=== PATIENT | male | born 1950 | race African-American/Black ===

== ENCOUNTER 2017-11-20 13:25 | Inpatient (IN) | payer OTHER, MEDICARE ==
[~2017-11-20] VITALS: Ht 190.5 cm; Wt 90.7 kg
[2017-11-20 13:38] VITALS: BP 134/104
[2017-11-20] MEDS ORDERED: Albuterol/Ipratropium 3ml neb HHN ONE (13:45)
[2017-11-20 14:23] LABS: BASOPHILS % (AUTO) 0.9 % (0.0-2.0); EOSINOPHILS % (AUTO) 0.5 % (0.0-3.0); HEMATOCRIT 47.2 % (42.0-52.0); HEMOGLOBIN 15.3 G/DL (14.2-18.0); LYMPHOCYTES % (AUTO) 8.2 % (20.0-45.0); MEAN CORPUSCULAR VOLUME 102 FL (80-99); MONOCYTES % (AUTO) 7.3 % (1.0-10.0); NEUTROPHILS % (AUTO) 83.1 % (45.0-75.0); PLATELET COUNT 228 K/UL (150-450); RED BLOOD COUNT 4.65 M/UL (4.70-6.10); RED CELL DISTRIBUTION WIDTH 13.5 % (11.6-14.8); WHITE BLOOD COUNT 9.1 K/UL (4.8-10.8)
--- NOTE | 2017-11-20 14:27 | Diagnostic Imaging Report ---
Indication: Dyspnea Comparison: None A single view chest radiograph was obtained. Findings: No definite infiltrate or pulmonary vascular congestion identified. The heart is enlarged. The aorta is mildly enlarged consistent with atherosclerotic vascular disease. The bones are osteopenic. Impression: No acute disease
[2017-11-20 14:48] LABS: ANION GAP 10 mmol/L (5-15); BLOOD UREA NITROGEN 8 mg/dL (7-18); CALCIUM 9.4 MG/DL (8.5-10.1); CARBON DIOXIDE 29 MMOL/L (21-32); CHLORIDE 105 MMOL/L (98-107); POTASSIUM 4.7 MMOL/L (3.5-5.1); SODIUM 144 MMOL/L (136-145)
[2017-11-20 14:56] LABS: ALANINE AMINOTRANSFERASE 24 U/L (12-78); ALBUMIN/GLOBULIN RATIO 1.1 (1.0-2.7); ALKALINE PHOSPHATASE 83 U/L (46-116); ASPARTATE AMINO TRANSFERASE 26 U/L (15-37); BILIRUBIN,TOTAL 0.9 MG/DL (0.2-1.0); CKMB 2.7 NG/ML (0.0-3.6); CREATINE KINASE 124 U/L (26-308)
[2017-11-20 15:38] LABS: APPEARANCE,URINE CLEAR; BILIRUBIN, URINE NEGATIVE (NEGATIVE); GLUCOSE, URINE (UA) NEGATIVE (NEGATIVE); KETONES,URINE NEGATIVE (NEGATIVE); LEUKOCYTE ESTERASE ,URINE 3+ (NEGATIVE); NITRITE,URINE NEGATIVE (NEGATIVE); PH,URINE 5 (4.5-8.0); PROTEIN,URINE 2+ (NEGATIVE); UROBILINOGEN,URINE 1 MG/DL (0.0-1.0)
[2017-11-20 15:40] LABS: COLOR,URINE YELLOW
[2017-11-20] MEDS ORDERED: Aspirin Baby 81mg ORAL ONE (15:45)
--- NOTE | 2017-11-20 15:45 | Diagnostic Imaging Report ---
Indication: Altered mental status Technique: Contiguous 5 mm thick transaxial imaging of the head obtained in a Siemens Sensation [address] scanner. Soft tissue and bone windows generated. Automatic Exposure Control was utilized. Total Dose length Product (DLP): 1488.[address] Dose Index Volume (CTDIvol): 70.38 mGy Comparison: none Findings: There is mild prominence of the ventricles, basal cisterns, and cerebral sulci consistent with atrophy. Mild, nonspecific, white matter hypoattenuation is noted throughout the brain consistent with chronic small vessel disease. There is no midline shift, edema, acute hemorrhage, mass effect, or abnormal extra-axial fluid collections. Bones and extra osseous soft tissues are unremarkable. Impression: No acute intracranial bleed, mass effect or edema. Mild atrophy of the brain. Nonspecific white matter hypoattenuation probably due to chronic small vessel disease. The CT scanner at [facility] is accredited by the [employer] and the scans are performed using dose optimization techniques as appropriate to a performed exam including Automatic Exposure control.
[2017-11-20 16:07] VITALS: BP 153/80
--- NOTE | 2017-11-20 16:34 | Emergency Room Report ---
History of Present Illness General Chief Complaint: Dyspnea/Respdistress Source: Patient Present Illness HPI Patient is a 67-year-old male presented after increased difficulty breathing. Patient gradual onset of symptoms. The patient brought in by EMS. He is markedly limited by patient being a poor historian. The patient had intermittent sharp pain. He reported having nonproductive cough. Allergies: Coded Allergies: PENICILLINS (Verified Allergy, Unknown, 11/20/17) Patient History Past Medical History: see triage record Reviewed Nursing Documentation: PMH: Agreed, PSxH: Agreed Nursing Documentation-PM Past Medical History: No History, Except For Hx Asthma: Yes Review of Systems All Other Systems: limited - by poor historian Physical Exam Vital Signs Date Time Temp Pulse Resp B/P (MAP) Pulse Ox O2 Delivery O2 Flow Rate FiO2 11/20/17 13:29 99.3 117 18 132/94 96 Nasal Cannula 4.0 11/20/17 14:05 32 Sp02 EP Interpretation: reviewed, normal General Appearance: normal inspection, alert, moderate distress, Chronically Ill Head: atraumatic ENT: normal ENT inspection, hearing grossly normal, normal voice Neck: normal inspection, full range of motion, supple, no bony tend Respiratory: normal inspection, no respiratory distress, no retraction, wheezing Cardiovascular #1: regular rate, rhythm, no edema Gastrointestinal: normal inspection, normal bowel sounds, non tender, soft, no guarding, no hernia Genitourinary: no CVA tenderness Musculoskeletal: normal inspection, back normal, normal range of motion Neurologic: normal inspection, alert, responsive, cap inspector III-XII nml as tested, other - confused speech Psychiatric: normal inspection, mood/affect normal Skin: normal inspection, normal color, no rash Medical Decision Making Diagnostic Impression: Primary Impression: Respiratory distress Additional Impressions: Non-STEMI (non-ST elevated myocardial infarction) COPD (chronic obstructive pulmonary disease) ER Course This presented for shortness of breath. Differential included but was not limited to anemia, pneumonia, pneumothorax, myocardial infarction, pericardial effusion, congestive heart failure, acidosis. Because of complexity of patient' s case laboratory testing and imaging studies were ordered. The patient was given aspirin as well as a breathing treatment in the emergency department. EKG interpreted by me showed sinus tachycardia with rate of 115 with biatrial enlargement there are nonspecific lateral T-wave inversion. Patient was noted to have positive troponin. Dr. Aurelio Mcgraw was contacted for inpatient management. Labs Test 11/20/17 14:03 11/20/17 14:05 11/20/17 15:20 Arterial Blood pH 7.429 (7.350-7.450) Arterial Blood Partial Pressure CO2 35.8 mmHg (35.0-45.0) Arterial Blood Partial Pressure O2 98.9 mmHg (75.0-100.0) Arterial Blood HCO3 23.2 mmol/L (22.0-26.0) Arterial Blood Oxygen Saturation 97.6 % (92.0-98.0) Arterial Blood Base Excess -0.6 Alin Test Positive White Blood Count 9.1 K/UL (4.8-10.8) Red Blood Count 4.65 M/UL (4.70-6.10) Hemoglobin 15.3 G/DL (14.2-18.0) Hematocrit 47.2 % (42.0-52.0) Mean Corpuscular Volume 102 FL (80-99) Mean Corpuscular Hemoglobin 33.0 PG (27.0-31.0) Mean Corpuscular Hemoglobin Concent 32.5 G/DL (32.0-36.0) Red Cell Distribution Width 13.5 % (11.6-14.8) Platelet Count 228 K/UL (150-450) Mean Platelet Volume 7.5 FL (6.5-10.1) Neutrophils (%) (Auto) 83.1 % (45.0-75.0) Lymphocytes (%) (Auto) 8.2 % (20.0-45.0) Monocytes (%) (Auto) 7.3 % (1.0-10.0) Eosinophils (%) (Auto) 0.5 % (0.0-3.0) Basophils (%) (Auto) 0.9 % (0.0-2.0) Sodium Level 144 MMOL/L (136-145) Potassium Level 4.7 MMOL/L (3.5-5.1) Chloride Level 105 MMOL/L (98-107) Carbon Dioxide Level 29 MMOL/L (21-32) Anion Gap 10 mmol/L (5-15) Blood Urea Nitrogen 8 mg/dL (7-18) Creatinine 1.0 MG/DL (0.55-1.30) Estimat Glomerular Filtration Rate > 60 mL/min (>60) Glucose Level 118 MG/DL (74-106) Lactic Acid Level 3.10 mmol/L (0.66-2.22) Calcium Level 9.4 MG/DL (8.5-10.1) Total Bilirubin 0.9 MG/DL (0.2-1.0) Aspartate Amino Transf (AST/SGOT) 26 U/L (15-37) Alanine Aminotransferase (ALT/SGPT) 24 U/L (12-78) Alkaline Phosphatase 83 U/L (46-116) Total Creatine Kinase 124 U/L (26-308) Creatine Kinase MB 2.7 NG/ML (0.0-3.6) Creatine Kinase MB Relative Index 2.1 Troponin I 1.617 ng/mL (0.000-0.056) Total Protein 7.5 G/DL (6.4-8.2) Albumin 4.0 G/DL (3.4-5.0) Globulin 3.5 g/dL Albumin/Globulin Ratio 1.1 (1.0-2.7) Urine Color Yellow Urine Appearance Clear Urine pH 5 (4.5-8.0) Urine Specific [place] 1.020 (1.005-1.035) Urine Protein 2+ (NEGATIVE) Urine Glucose (UA) Negative (NEGATIVE) Urine Ketones Negative (NEGATIVE) Urine Occult Blood 2+ (NEGATIVE) Urine Nitrite Negative (NEGATIVE) Urine Bilirubin Negative (NEGATIVE) Urine Urobilinogen 1 MG/DL (0.0-1.0) Urine Leukocyte Esterase 3+ (NEGATIVE) Urine RBC 2-4 /HPF (0 - 0) Urine WBC 5-10 /HPF (0 - 0) Urine Squamous Epithelial Cells None /LPF (NONE/OCC) Urine Amorphous Sediment Few /LPF (NONE) Urine Bacteria Few /HPF (NONE) Urine Mucus Few /LPF (NONE/OCC) Urine Opiates Screen Negative (NEGATIVE) Urine Barbiturates Screen Negative (NEGATIVE) Phencyclidine (PCP) Screen Negative (NEGATIVE) Urine Amphetamines Screen Negative (NEGATIVE) Urine Benzodiazepines Screen Negative (NEGATIVE) Urine Cocaine Screen Negative (NEGATIVE) Urine Marijuana (THC) Screen Negative (NEGATIVE) EKG Diagnostic Results Rate: tachycardiac Rhythm: NSR ST Segments: no acute changes ASA given to the pt in ED: Yes Rhythm Strip Diag. Results EP Interpretation: yes Rhythm: NSR, no PVC's, no ectopy Last Vital Signs Date Time Temp Pulse Resp B/P (MAP) Pulse Ox O2 Delivery O2 Flow Rate FiO2 11/20/17 16:07 99.3 122 27 153/80 99 Nasal Cannula 3.0 11/20/17 14:05 32 Status: unchanged Disposition: ADMITTED INPATIENT Condition: Serious Referrals: NOT CHOSEN IPA/,REFERRING (PCP) Francisco Norton Nov 20, 2017 16:34
[2017-11-20 17:48] VITALS: BP 112/75
[2017-11-20 19:05] VITALS: BP 135/84
[2017-11-20 22:00] VITALS: BP 112/81
[2017-11-20] MEDS ORDERED: cefTRIAXone 1 GM in NS 55 ML IVPB SCH (23:30)
[2017-11-20 23:40] VITALS: BP 116/76
[2017-11-21] MEDS: Albuterol/Ipratropium 3ml neb HHN SCH ×6 (02:10→22:32)
[2017-11-21 03:12] VITALS: BP 126/81
[2017-11-21 04:35] VITALS: BP 101/72
[2017-11-21 07:48] LABS: EOSINOPHILS % (AUTO) 0.4 % (0.0-3.0); HEMATOCRIT 40.1 % (42.0-52.0); HEMOGLOBIN 13.1 G/DL (14.2-18.0); LYMPHOCYTES % (AUTO) 11.1 % (20.0-45.0); MEAN CORPUSCULAR VOLUME 101 FL (80-99); MONOCYTES % (AUTO) 8.1 % (1.0-10.0); NEUTROPHILS % (AUTO) 79.4 % (45.0-75.0); PLATELET COUNT 189 K/UL (150-450); RED BLOOD COUNT 3.96 M/UL (4.70-6.10); RED CELL DISTRIBUTION WIDTH 13.5 % (11.6-14.8); WHITE BLOOD COUNT 8.7 K/UL (4.8-10.8)
[2017-11-21 08:00] VITALS: BP 117/72
[2017-11-21 08:21] LABS: ALANINE AMINOTRANSFERASE 25 U/L (12-78); ALBUMIN 3.1 G/DL (3.4-5.0); ALBUMIN/GLOBULIN RATIO 0.9 (1.0-2.7); ALKALINE PHOSPHATASE 70 U/L (46-116); ANION GAP 6 mmol/L (5-15); ASPARTATE AMINO TRANSFERASE 35 U/L (15-37); BILIRUBIN,TOTAL 1.2 MG/DL (0.2-1.0); BLOOD UREA NITROGEN 8 mg/dL (7-18); CALCIUM 8.8 MG/DL (8.5-10.1); CARBON DIOXIDE 29 MMOL/L (21-32); CHLORIDE 106 MMOL/L (98-107); CHOLESTEROL 112 MG/DL (< 200); CREATININE 1.1 MG/DL (0.55-1.30); HDL CHOLESTEROL 67 MG/DL (40-60); POTASSIUM 4.6 MMOL/L (3.5-5.1); SODIUM 141 MMOL/L (136-145); TRIGLYCERIDES 29 MG/DL (30-150)
[2017-11-21 08:28] LABS: BILIRUBIN,DIRECT 0.3 MG/DL (0.0-0.3)
[2017-11-21] MEDS: Azithromycin 250mg tab ORAL SCH (09:14)
[2017-11-21] MEDS: Aspirin EC 81mg tab ORAL SCH (09:16)
--- NOTE | 2017-11-21 09:43 | History and Physical Report ---
DATE OF ADMISSION: 11/20/2017 ATTENDING PHYSICIAN: Aurelio Mcgraw M.D. REASON FOR ADMISSION: Elevated troponin level. HISTORY OF PRESENT ILLNESS: This is a 67-year-old male with no known significant medical history. He presented to the hospital complaining of some congestion and shortness of breath. He also noted difficulty sleeping last night because of not being able to get in a comfortable position in bed. He was evaluated in the emergency room. Concerning cardiac workup included an elevated troponin level of 1.617 and EKG revealing sinus tachycardia with rightward axis and non-specific T-wave abnormalities. Chemistry panel and CBC were within normal limits. Lactic acid, however, was elevated at 3.1. Chest x-ray revealed no acute process. PAST MEDICAL HISTORY: Includes possible chronic obstructive pulmonary disease and history of childhood asthma. MEDICATIONS: Presently none. ALLERGIES: Penicillin. SOCIAL HISTORY: Prior smoker. Denies alcohol or substance abuse. REVIEW OF SYSTEMS: A 10-point review of systems performed. All systems negative other than noted above. The patient is not very well-versed his medical history, but does state that he is familiar with the medical field as his sister and mother were both nurses and one was actually employed at this facility although . PHYSICAL EXAMINATION: GENERAL: Thin, frail, and in no acute distress. VITAL SIGNS: Blood pressure 153/80, pulse 122, respirations 27, and temperature 99.3. HEENT: Temporal wasting. Pale conjunctivae. Oropharynx clear. Mucous membranes dry. NECK: Supple. Jugular venous pressure normal. LUNGS: With diminished breath sounds. No wheezing or rales. CARDIAC: Regular rhythm. Rapid rate. Normal S1, S2 with no murmur. ABDOMEN: Soft and nontender. No guarding or rebound. EXTREMITIES: No edema. NEUROLOGIC: Nonfocal. IMPRESSION: 1. Acute myocardial infarction. 2. Chronic obstructive pulmonary disease exacerbation. 3. Probable acute bronchitis. 4. Lactic acidosis. 5. Condition critical. PLAN: 1. Cardiac monitoring. 2. Hydration. 3. Serial lactic acid levels. 4. Serial troponin level. 5. Beta-blockade. 6. Anti-platelet therapy with aspirin. 7. Inhaled bronchodilators. 8. Empiric antibiotic. 9. DVT and stress ulcer prophylaxes. 10. Further cardiovascular workup to follow based on clinical course. 11. Cautious use of beta-blockers in this clinical setting. Aurelio Mcgraw M.D. DR: KATHERINE JOB#: [id number] CC: PALLAVI
[2017-11-21 12:00] VITALS: BP 124/79
[2017-11-21] MEDS: Doxycycline Hyclate 100 MG in D5W 110 ML IV SCH (13:18)
[2017-11-21 16:00] VITALS: BP 110/79
[2017-11-21 20:29] VITALS: BP 123/80
[2017-11-21] MEDS: Zolpidem 5mg tab ORAL SCH (21:10)
[2017-11-21] MEDS: Heparin 5000 units/ml inj SUBQ SCH (21:21)
[2017-11-22 00:05] VITALS: BP 99/66
[2017-11-22] MEDS: Doxycycline Hyclate 100 MG in D5W 110 ML IV SCH ×2 (00:19→13:06)
--- NOTE | 2017-11-22 02:45 | Progress Note ---
DATE: 11/21/2017 CARDIOLOGY PROGRESS NOTE SUBJECTIVE: The patient is still coughing with congestion and shortness of breath, but feels slightly better. No chest pain noted. OBJECTIVE: VITAL SIGNS: Blood pressure 123/80, pulse 112, respirations 20, and afebrile. Monitored rhythm is sinus tachycardia with occasional PACs. LUNGS: Coarse breath sounds. Scattered rhonchi. HEART: Regular rhythm. Rapid rate. Normal S1 and S2. ABDOMEN: Soft. EXTREMITIES: No edema. LABORATORY DATA: White count 8.7 and hemoglobin 13.1. Sodium 141, potassium 4.6, bicarbonate 29, BUN 8, and creatinine 1.1. Lactic acid now normal. Troponin 1.289. Albumin 3.1. LDL cholesterol 48. IMPRESSION: 1. Acute myocardial infarction. 2. Chronic obstructive pulmonary disease with acute exacerbation. 3. Acute bronchospasm. 4. Lactic acidosis, recovered. 5. Mild protein-calorie malnutrition. 6. Hypovolemia and mild dehydration. 7. Cardiogenic insuff - critical and guarded. PLAN: 1. Cautious use of beta-gavino. 2. Anti-platelet therapy with aspirin. 3. Inhaled bronchodilators. 4. Empiric antibiotics. 5. Check CT scan of the chest. 6. Taper IV fluids. Aurelio Mcgraw M.D. DR: BARB JOB#: [id number] CC: PALLAVI
[2017-11-22] MEDS: Albuterol/Ipratropium 3ml neb HHN SCH ×5 (03:30→20:19)
[2017-11-22 04:13] VITALS: BP 111/74
[2017-11-22 08:00] VITALS: BP 123/87
[2017-11-22] MEDS: Aspirin EC 81mg tab ORAL SCH (08:47)
[2017-11-22] MEDS: Azithromycin 250mg tab ORAL SCH (08:48)
[2017-11-22] MEDS: Heparin 5000 units/ml inj SUBQ SCH ×2 (08:49→21:10)
[2017-11-22 12:00] VITALS: BP 99/75
--- NOTE | 2017-11-22 13:58 | Consultation ---
Consult Note Consult Note PULMONARY CONSULTATION REQUESTING PHYSICIAN: Aurelio Mcgraw M.D. CONSULTING PHYSICIAN: Apolinar Singer MD REASON FOR ADMISSION: shortness of breath HISTORY OF PRESENT ILLNESS: This is a 67-year-old male with no known significant medical history. He presented to the hospital complaining of some congestion and shortness of breath. He also noted difficulty sleeping last night because of not being able to get in a comfortable position in bed. He was evaluated in the emergency room. Concerning cardiac workup included an elevated troponin level of 1.617 and EKG revealing sinus tachycardia with rightward axis and non-specific T-wave abnormalities. Chemistry panel and CBC were within normal limits. Lactic acid, however, was elevated at 3.1. Chest x-ray revealed no acute process. PAST MEDICAL HISTORY: Includes possible chronic obstructive pulmonary disease and history of childhood asthma. MEDICATIONS: Presently none. ALLERGIES: Penicillin. SOCIAL HISTORY: Prior smoker. Denies alcohol or substance abuse. REVIEW OF SYSTEMS: A 10-point review of systems performed. All systems negative other than noted above. The patient is not very well-versed his medical history, but does state that he is familiar with the medical field as his sister and mother were both nurses and one was actually employed at this facility although . PHYSICAL EXAMINATION: GENERAL: Thin, frail, and in no acute distress. VITAL SIGNS: Blood pressure 153/80, pulse 122, respirations 27, and temperature 99.3. HEENT: Temporal wasting. Pale conjunctivae. Oropharynx clear. Mucous membranes dry. NECK: Supple. Jugular venous pressure normal. LUNGS: With diminished breath sounds. No wheezing or rales. CARDIAC: Regular rhythm. Rapid rate. Normal S1, S2 with no murmur. ABDOMEN: Soft and nontender. No guarding or rebound. EXTREMITIES: No edema. NEUROLOGIC: Nonfocal. IMPRESSION: 1. Acute myocardial infarction. 2. Chronic obstructive pulmonary disease exacerbation. 3. history of asthma 4. Lactic acidosis. 5. Condition critical. PLAN: 1. Cardiac monitoring. 2. Hydration. 3. Serial lactic acid levels. 4. Serial troponin level. 5. Beta-blockade. 6. Anti-platelet therapy with aspirin. 7. Inhaled bronchodilators. 8. Empiric antibiotic. 9. DVT and stress ulcer prophylaxes. 10. Further cardiovascular workup to follow based on clinical course. 11. Cautious use of beta-blockers in this clinical setting. 12. hold off on steroids. Trevor Brown Omar Syed MD Nov 22, 2017 13:58
[2017-11-22 16:00] VITALS: BP 127/85
[2017-11-22 20:30] VITALS: BP 117/73
[2017-11-22] MEDS: Zolpidem 5mg tab ORAL SCH (21:06)
[2017-11-23 00:02] VITALS: BP 100/61
[2017-11-23] MEDS: Albuterol/Ipratropium 3ml neb HHN SCH ×7 (00:13→23:16)
[2017-11-23] MEDS: Doxycycline Hyclate 100 MG in D5W 110 ML IV SCH ×2 (00:24→12:26)
[2017-11-23 04:10] VITALS: BP 111/76
[2017-11-23 06:21] LABS: BASOPHILS % (AUTO) 1.6 % (0.0-2.0); EOSINOPHILS % (AUTO) 1.4 % (0.0-3.0); HEMATOCRIT 36.8 % (42.0-52.0); HEMOGLOBIN 12.5 G/DL (14.2-18.0); MEAN CORPUSCULAR VOLUME 101 FL (80-99); MONOCYTES % (AUTO) 8.3 % (1.0-10.0); NEUTROPHILS % (AUTO) 57.8 % (45.0-75.0); PLATELET COUNT 158 K/UL (150-450); RED BLOOD COUNT 3.63 M/UL (4.70-6.10); RED CELL DISTRIBUTION WIDTH 12.9 % (11.6-14.8)
[2017-11-23 06:56] LABS: ALANINE AMINOTRANSFERASE 21 U/L (12-78); ALBUMIN 2.8 G/DL (3.4-5.0); ALBUMIN/GLOBULIN RATIO 0.8 (1.0-2.7); ALKALINE PHOSPHATASE 56 U/L (46-116); ANION GAP 8 mmol/L (5-15); ASPARTATE AMINO TRANSFERASE 23 U/L (15-37); BILIRUBIN,TOTAL 0.5 MG/DL (0.2-1.0); BLOOD UREA NITROGEN 16 mg/dL (7-18); CALCIUM 9.1 MG/DL (8.5-10.1); CARBON DIOXIDE 25 MMOL/L (21-32); CHLORIDE 109 MMOL/L (98-107); CREATININE 1.1 MG/DL (0.55-1.30); POTASSIUM 4.3 MMOL/L (3.5-5.1); SODIUM 142 MMOL/L (136-145)
[2017-11-23 08:00] VITALS: BP 114/76
[2017-11-23] MEDS: Azithromycin 250mg tab ORAL SCH (09:01)
[2017-11-23] MEDS: Aspirin EC 81mg tab ORAL SCH (09:01)
[2017-11-23] MEDS: Heparin 5000 units/ml inj SUBQ SCH ×2 (09:02→21:52)
--- NOTE | 2017-11-23 11:54 | Pulmonology Progress Note ---
Assessment/Plan Assessment/Plan 1. Acute myocardial infarction. 2. Chronic obstructive pulmonary disease exacerbation. 3. history of asthma 4. Lactic acidosis. 5. Condition critical. PLAN: I suspect the predominant issue is cardiac on echocardiogram. I Will DC IV fluids.. Continue antibiotics. Subjective Interval Events: Echocardiogram results noted. Patient is comfortable. Constitutional: Reports: no symptoms HEENT: Repors: no symptoms Respiratory: Reports: dry cough, shortness of breath Cardiovascular: Reports: no symptoms Gastrointestinal/Abdominal: Reports: no symptoms Allergies: Coded Allergies: PENICILLINS (Verified Allergy, Unknown, 11/20/17) Objective Last 24 Hour Vital Signs Date Time Temp Pulse Resp B/P (MAP) Pulse Ox O2 Delivery O2 Flow Rate FiO2 11/23/17 11:26 96 20 99 Room Air 21 11/23/17 11:18 95 20 99 Room Air 21 11/23/17 09:02 101 114/76 11/23/17 08:00 94 11/23/17 08:00 97.0 101 19 114/76 98 Room Air 11/23/17 07:38 86 18 99 Room Air 21 11/23/17 07:29 84 20 99 Room Air 21 11/23/17 04:10 97.0 92 20 111/76 97 11/23/17 04:00 93 11/23/17 03:33 92 16 98 Room Air 21 11/23/17 03:23 89 18 95 Room Air 21 11/23/17 00:28 101 18 97 Room Air 21 11/23/17 00:15 99 18 95 Room Air 21 11/23/17 00:02 97.2 88 20 100/61 100 11/23/17 00:00 102 11/22/17 21:06 103 117/73 11/22/17 20:31 103 18 97 Room Air 21 11/22/17 20:30 98.1 102 20 117/73 96 11/22/17 20:21 101 21 95 Room Air 21 11/22/17 20:00 101 11/22/17 16:00 101 11/22/17 16:00 97.3 99 21 127/85 99 Room Air 11/22/17 15:51 92 16 99 Room Air 21 11/22/17 15:41 96 16 98 21 11/22/17 12:00 98 11/22/17 12:00 97.6 97 21 99/75 98 Room Air Intake and Output 1/11/18 1/12/18 19:00 07:00 Intake Total 800 ml 626.6 ml Output Total 1400 ml 400 ml Balance -600 ml 226.6 ml Intake Oral 800 ml IV Total 626.6 ml Output Urine Total 1400 ml 400 ml # Voids 2 General Appearance: no acute distress HEENT: normocephalic Respiratory/Chest: chest wall non-tender, lungs clear Cardiovascular: normal peripheral pulses, normal rate Abdomen: normal bowel sounds Microbiology Date/Time Source Procedure Growth Status 11/20/17 14:05 Blood Blood Culture - Preliminary NO GROWTH AFTER 48 HOURS Resulted 11/20/17 14:00 Blood Blood Culture - Preliminary NO GROWTH AFTER 48 HOURS Resulted 11/21/17 21:30 Sputum Expectorated Gram Stain - Final Resulted 11/21/17 21:30 Sputum Expectorated Sputum Culture - Preliminary NORMAL UPPER RESPIRATORY KASSIE AT 24 ... Resulted 11/20/17 15:09 Nasal Nares Influenza Types A,B Antigen (JAYSON) - Final Complete Laboratory Tests 11/23/17 05:40: White Blood Count 5.0, Red Blood Count 3.63L, Hemoglobin 12.5L, Hematocrit 36.8L , Mean Corpuscular Volume 101H, Mean Corpuscular Hemoglobin 34.5H, Mean Corpuscular Hemoglobin Concent 34.0, Red Cell Distribution Width 12.9, Platelet Count 158, Mean Platelet Volume 7.5, Neutrophils (%) (Auto) 57.8, Lymphocytes (% ) (Auto) 31.0, Monocytes (%) (Auto) 8.3, Eosinophils (%) (Auto) 1.4, Basophils ( %) (Auto) 1.6, Sodium Level 142, Potassium Level 4.3, Chloride Level 109H, Carbon Dioxide Level 25, Anion Gap 8, Blood Urea Nitrogen 16, Creatinine 1.1, Estimat Glomerular Filtration Rate > 60, Glucose Level 106, Calcium Level 9.1, Magnesium Level 1.5L, Total Bilirubin 0.5, Aspartate Amino Transf (AST/SGOT) 23 , Alanine Aminotransferase (ALT/SGPT) 21, Alkaline Phosphatase 56, Pro-B-Type Natriuretic Peptide 4648H, Total Protein 6.4, Albumin 2.8L, Globulin 3.6, Albumin/Globulin Ratio 0.8L Current Medications Medications (Trade) Dose Ordered Sig/Elmer Route PRN Reason Start Time Stop Time Status Last Admin Dose Admin Acetaminophen (Tylenol) 650 mg EVERY 4 HOURS PRN ORAL fever ALFARO Pain 11/20/17 23:30 12/20/17 23:29 11/21/17 04:22 Albuterol/ Ipratropium (Albuterol/ Ipratropium) 3 ml Q4HRT HHN 11/21/17 03:00 11/26/17 02:59 11/23/17 11:18 Aspirin (Ecotrin) 81 mg DAILY ORAL 11/21/17 09:00 12/21/17 08:59 11/23/17 09:01 Azithromycin (Zithromax) 250 mg DAILY ORAL 11/21/17 09:00 11/28/17 08:59 11/23/17 09:01 Carvedilol (Coreg) 3.125 mg EVERY 12 HOURS ORAL 11/20/17 23:30 12/20/17 23:29 11/23/17 09:02 Doxycycline Hyclate 100 mg/ Dextrose 110 ml @ 110 mls/hr Q12HR@0000,1200 IV 11/21/17 12:00 11/28/17 11:59 11/23/17 00:24 Famotidine (Pepcid) 20 mg DAILY ORAL 11/21/17 09:00 12/21/17 08:59 11/23/17 09:01 Heparin Sodium (Porcine) (Heparin 5000 units/ml) 5,000 units EVERY 12 HOURS SUBQ 11/21/17 21:00 12/21/17 20:59 11/23/17 09:02 Sodium Chloride 1,000 ml @ 50 mls/hr Q20H IV 11/21/17 23:30 12/21/17 23:29 11/23/17 00:24 Zolpidem Tartrate (Ambien) 5 mg BEDTIME ORAL 11/21/17 21:00 11/28/17 20:59 11/22/17 21:06 Apolinar Singer MD Nov 23, 2017 11:54
[2017-11-23 12:00] VITALS: BP 118/84
--- NOTE | 2017-11-23 15:09 | Cardiology Report ---
APPROVED REPORT EKG Measurement Heart [id number] Sinus tachycardia Right atrial enlargement Nonspecific T wave abnormality Abnormal ECG
[2017-11-23 16:00] VITALS: BP 115/76
[2017-11-23] MEDS: Lisinopril 2.5mg tab ORAL SCH (16:34)
[2017-11-23 20:00] VITALS: BP 116/81
--- NOTE | 2017-11-23 20:31 | Progress Note ---
DATE: 11/23/2017 CARDIOLOGY PROGRESS NOTE SUBJECTIVE: The patient's cardiomyopathy was discussed with him and he was made aware of the severity of his left ventricular systolic dysfunction and long-term implication. He was also made aware that further treatments available is both medications and device related that may improve his function and prognosis. The patient has less shortness of breath, but is still feeling that he is not at his baseline. OBJECTIVE: VITAL SIGNS: Blood pressure 118/84, pulse 97, and respirations 21. Afebrile. NECK: Supple. He has slight jugular venous distention. LUNGS: Few rales. Occasional rhonchi. No wheezing. HEART: Regular rhythm and rate. Normal S1, S2 with a 1/6 systolic apical murmur at the lower left sternal border. ABDOMEN: Soft. EXTREMITIES: There is no trace ankle edema noted. LABORATORY DATA: Sputum culture revealed normal shy. BUN is 16 and creatinine 1.1. Pro-natriuretic peptide is 4600. Albumin 2.8. IMPRESSION: 1. Acute myocardial infarction. 2. Severe cardiomyopathy. 3. Acute on chronic systolic congestive heart failure. 4. Moderate protein-calorie malnutrition. 5. Chronic obstructive pulmonary disease exacerbation. 6. Hypomagnesemia with magnesium level of 1.5. 7. Acute bronchitis. 8. Low range B12 level. 9. Cardiogenic insuff - critical and guarded. PLAN: 1. Add SOLEDAD inhibitor. 2. Titrate carvedilol. 3. Intravenous magnesium. 4. B12 supplement. 5. Physical and occupational therapy assessments. 6. Titrate respiratory therapy. Aurelio Mcgraw M.D. DR: KATHERINE JOB#: [id number] CC: PALLAVI
[2017-11-23] MEDS: Zolpidem 5mg tab ORAL SCH (21:49)
--- NOTE | 2017-11-23 22:01 | Progress Note ---
DATE: 11/22/2017 CARDIOLOGY PROGRESS NOTE LATE ENTRY SUBJECTIVE: The patient has less cough and congestion. Still short of breath and he cannot lie flat. Echocardiogram was reviewed and notable for severely depressed systolic function of less than 20% with global hypokinesis. OBJECTIVE: VITAL SIGNS: Blood pressure 117/73, heart rate 103, respiratory rate 22, and afebrile. NECK: Jugular venous pressure is slightly elevated. LUNGS: With few rales and rhonchi. CARDIAC: Regular rhythm and rate. Normal S1, S2. A 1/6 systolic apical murmur. EXTREMITIES: With trace edema. IMPRESSION: 1. Acute bronchitis. 2. Chronic obstructive pulmonary disease exacerbation. 3. Cardiomyopathy with severe systolic dysfunction, acute on chronic. 4. Acute myocardial infarction with elevated troponin level. 5. Cardiogenic insuff - critical and guarded. PLAN: 1. Titrate anti-failure regimen with caution, limited by blood pressure parameters. 2. Continue antimicrobials, bronchodilators. 3. Respiratory hygiene. 4. Discontinue intravenous fluids. 5. Reassess for diuretic needs intermodal dispatcher. Aurelio Mcgraw M.D. DR: Antony JOB#: [id number] CC: PALLAVI
[2017-11-24] VITALS: BP 105/69
[2017-11-24] MEDS: Doxycycline Hyclate 100 MG in D5W 110 ML IV SCH ×3 (01:20→23:48)
[2017-11-24] MEDS: Albuterol/Ipratropium 3ml neb HHN SCH ×6 (03:29→23:08)
[2017-11-24 04:00] VITALS: BP 129/77
[2017-11-24 08:00] VITALS: BP 124/76
[2017-11-24] MEDS ORDERED: Vitamin B12 1000mcg/ml Inj IM SCH (09:00)
[2017-11-24] MEDS: Azithromycin 250mg tab ORAL SCH (09:30)
[2017-11-24] MEDS: Aspirin EC 81mg tab ORAL SCH (09:33)
[2017-11-24] MEDS: Lisinopril 2.5mg tab ORAL SCH (09:42)
[2017-11-24] MEDS: Heparin 5000 units/ml inj SUBQ SCH ×2 (09:47→21:17)
[2017-11-24 12:00] VITALS: BP 122/61
[2017-11-24 16:00] VITALS: BP 101/71
[2017-11-24] MEDS ORDERED: D5LR 1000 ml IV ONE (16:32)
[2017-11-24] MEDS ORDERED: 1/2 NS 1000ml IV ONE (16:32)
[2017-11-24] MEDS ORDERED: Tubing IV Secondary IV ONE (16:32)
[2017-11-24] MEDS ORDERED: NS 275ml ONE (16:32)
--- NOTE | 2017-11-24 17:31 | Pulmonology Progress Note ---
Assessment/Plan Assessment/Plan 1. Acute myocardial infarction. 2. Chronic obstructive pulmonary disease exacerbation. 3. history of asthma 4. Lactic acidosis. 5. Condition critical. PLAN: I suspect the predominant issue is cardiac; low EF noted on echocardiogram. Continue antibiotics. Subjective Interval Events: States he is better Constitutional: Reports: no symptoms HEENT: Repors: no symptoms Respiratory: Reports: dry cough, shortness of breath Allergies: Coded Allergies: PENICILLINS (Verified Allergy, Unknown, 11/20/17) Objective Last 24 Hour Vital Signs Date Time Temp Pulse Resp B/P (MAP) Pulse Ox O2 Delivery O2 Flow Rate FiO2 11/24/17 16:00 98.2 92 18 101/71 99 Room Air 11/24/17 15:06 98 16 97 Room Air 21 11/24/17 15:06 21 11/24/17 14:59 98 16 97 Room Air 21 11/24/17 12:00 97.0 92 18 122/61 98 Room Air 11/24/17 12:00 59 11/24/17 11:37 92 16 100 Room Air 21 11/24/17 11:37 21 11/24/17 11:30 91 16 97 Room Air 21 11/24/17 09:42 129/77 11/24/17 09:32 75 129/77 11/24/17 08:28 101 16 98 Room Air 21 11/24/17 08:28 21 11/24/17 08:21 101 16 98 Room Air 21 11/24/17 08:00 97.3 100 18 124/76 97 Nasal Cannula 11/24/17 08:00 100 11/24/17 04:00 94 11/24/17 04:00 97.5 68 20 129/77 96 Nasal Cannula 11/24/17 03:34 102 20 99 Room Air 21 11/24/17 03:28 21 11/24/17 03:27 102 20 99 Room Air 21 11/24/17 00:33 102 11/24/17 00:00 96.3 91 20 105/69 99 Room Air 11/24/17 00:00 89 11/23/17 23:19 98 20 98 Room Air 21 11/23/17 23:16 21 11/23/17 23:15 98 20 98 Room Air 21 11/23/17 23:15 98 20 98 Room Air 2.0 21 11/23/17 21:49 98 120/75 11/23/17 20:00 97.3 107 20 116/81 Room Air 11/23/17 19:56 99 20 98 Room Air 21 11/23/17 19:48 21 11/23/17 19:46 99 20 98 Room Air 21 Intake and Output 11/23/17 11/24/17 19:00 07:00 Intake Total 1050 ml 310 ml Output Total 300 ml 1175 ml Balance 750 ml -865 ml Intake Oral 800 ml 200 ml IV Total 250 ml 110 ml Output Urine Total 300 ml 1175 ml # Voids 2 General Appearance: no acute distress HEENT: normocephalic Cardiovascular: normal peripheral pulses, normal rate Abdomen: normal bowel sounds, soft, non tender Microbiology Date/Time Source Procedure Growth Status 11/21/17 21:30 Sputum Expectorated Gram Stain - Final Complete 11/21/17 21:30 Sputum Expectorated Sputum Culture - Final NORMAL UPPER RESPIRATORY KASSIE AT 48 ... Complete Current Medications Medications (Trade) Dose Ordered Sig/Elmer Route PRN Reason Start Time Stop Time Status Last Admin Dose Admin Acetaminophen (Tylenol) 650 mg EVERY 4 HOURS PRN ORAL fever ALFARO Pain 11/20/17 23:30 12/20/17 23:29 11/21/17 04:22 Albuterol/ Ipratropium (Albuterol/ Ipratropium) 3 ml Q4HRT HHN 11/21/17 03:00 11/26/17 02:59 11/24/17 14:59 Aspirin (Ecotrin) 81 mg DAILY ORAL 11/21/17 09:00 12/21/17 08:59 11/24/17 09:33 Azithromycin (Zithromax) 250 mg DAILY ORAL 11/21/17 09:00 11/28/17 08:59 11/24/17 09:30 Carvedilol (Coreg) 3.125 mg EVERY 12 HOURS ORAL 11/20/17 23:30 12/20/17 23:29 11/24/17 09:32 Cyanocobalamin (Vitamin B12) 1,000 mcg DAILY IM 11/24/17 09:00 11/27/17 07:00 11/24/17 09:33 Doxycycline Hyclate 100 mg/ Dextrose 110 ml @ 110 mls/hr Q12HR@0000,1200 IV 11/21/17 12:00 11/28/17 11:59 11/24/17 13:24 Famotidine (Pepcid) 20 mg DAILY ORAL 11/21/17 09:00 12/21/17 08:59 11/24/17 09:29 Heparin Sodium (Porcine) (Heparin 5000 units/ml) 5,000 units EVERY 12 HOURS SUBQ 11/21/17 21:00 12/21/17 20:59 11/24/17 09:47 Lisinopril (Zestril) 5 mg DAILY ORAL 11/23/17 16:00 12/23/17 15:59 11/24/17 09:42 Zolpidem Tartrate (Ambien) 5 mg BEDTIME ORAL 11/21/17 21:00 11/28/17 20:59 11/23/17 21:49 Apolinar Singer MD Nov 24, 2017 17:31
[2017-11-24 20:00] VITALS: BP 124/79
[2017-11-24] MEDS: Zolpidem 5mg tab ORAL SCH (21:16)
[2017-11-25] VITALS: BP 114/75
--- NOTE | 2017-11-25 | Progress Note ---
DATE: 11/24/2017 CARDIOLOGY PROGRESS NOTE SUBJECTIVE: The patient feels better. Less congested. Less short of breath. Better exercise capacity. OBJECTIVE: VITAL SIGNS: Blood pressure of 124/79, pulse 96, and respirations 18. NECK: Jugular venous pressure is slightly elevated . LUNGS: With few rhonchi. CARDIAC: Regular rhythm. Rapid rate. Normal S1, S2 with a fourth heart sound. ABDOMEN: Soft. No edema. IMPRESSION: 1. Severe dilated cardiomyopathy with systolic dysfunction. 2. Acute on chronic systolic congestive heart failure. 3. Chronic obstructive pulmonary disease. 4. Paroxysmal bronchospasm. 5. Acute bronchitis. 6. Dilated cardiomyopathy. PLAN: 1. Advance anti-failure regimen. 2. Continue respiratory therapy. 3. Discontinue telemetry. 4. Consideration long-term for cardiac defibrillator for primary prevention of sudden cardiac . Aurelio Mcgraw M.D. DR: DANISH JOB#: [id number] CC:
[2017-11-25] MEDS: Albuterol/Ipratropium 3ml neb HHN SCH ×6 (03:11→23:39)
[2017-11-25 04:00] VITALS: BP 109/74
[2017-11-25 08:00] VITALS: BP 114/92
[2017-11-25] MEDS: Lisinopril 2.5mg tab ORAL SCH (09:00)
[2017-11-25] MEDS: Carvedilol 6.25mg Tab ORAL SCH ×2 (09:00→20:24)
[2017-11-25] MEDS: Heparin 5000 units/ml inj SUBQ SCH ×2 (09:00→20:27)
[2017-11-25] MEDS: Aspirin EC 81mg tab ORAL SCH (09:04)
[2017-11-25] MEDS: Azithromycin 250mg tab ORAL SCH (09:04)
--- NOTE | 2017-11-25 09:49 | Pulmonology Progress Note ---
Assessment/Plan Assessment/Plan 1. Acute myocardial infarction. 2. Chronic obstructive pulmonary disease exacerbation. 3. history of asthma 4. Cardiomyopathy with depressed EF PLAN: I suspect the predominant issue is cardiac; low EF noted on echocardiogram. Continue antibiotics.Will dc Doxycycline; continue Azithromycin Continue respiratory treatments Subjective Interval Events: Now on 4 th floor Constitutional: Reports: no symptoms HEENT: Repors: no symptoms Respiratory: Reports: dry cough, shortness of breath Cardiovascular: Reports: no symptoms Gastrointestinal/Abdominal: Reports: no symptoms Allergies: Coded Allergies: PENICILLINS (Verified Allergy, Unknown, 11/20/17) Objective Last 24 Hour Vital Signs Date Time Temp Pulse Resp B/P (MAP) Pulse Ox O2 Delivery O2 Flow Rate FiO2 11/25/17 09:00 114/92 11/25/17 09:00 84 114/92 11/25/17 08:30 84 16 100 Room Air 21 11/25/17 08:30 21 11/25/17 08:00 97.7 72 19 114/92 98 Room Air 11/25/17 04:00 98.2 91 18 109/74 96 Room Air 11/25/17 03:13 86 20 98 Nasal Cannula 2.0 28 11/25/17 03:10 21 11/25/17 03:09 86 20 98 Room Air 21 11/25/17 01:39 89 11/25/17 00:00 97.0 91 20 114/75 97 11/24/17 23:05 21 11/24/17 23:04 95 20 98 Room Air 21 11/24/17 23:04 95 20 98 Room Air 21 11/24/17 21:16 98 124/79 11/24/17 20:00 98 11/24/17 20:00 97.5 99 20 124/79 98 11/24/17 19:27 98 18 98 Room Air 21 11/24/17 19:18 21 11/24/17 19:16 98 18 98 Room Air 21 11/24/17 16:00 96 11/24/17 16:00 98.2 92 18 101/71 99 Room Air 11/24/17 15:06 98 16 97 Room Air 21 11/24/17 15:06 21 11/24/17 14:59 98 16 97 Room Air 21 11/24/17 12:00 97.0 92 18 122/61 98 Room Air 11/24/17 12:00 59 11/24/17 11:37 92 16 100 Room Air 21 11/24/17 11:37 21 11/24/17 11:30 91 16 97 Room Air 21 Intake and Output 11/24/17 11/25/17 19:00 07:00 Intake Total 480 ml 110 ml Output Total 750 ml Balance -270 ml 110 ml Intake Oral 480 ml IV Total 110 ml Output Urine Total 750 ml General Appearance: no acute distress HEENT: normocephalic Respiratory/Chest: chest wall non-tender, decreased breath sounds Cardiovascular: normal peripheral pulses, normal rate Abdomen: normal bowel sounds, soft, non tender Current Medications Medications (Trade) Dose Ordered Sig/Elmer Route PRN Reason Start Time Stop Time Status Last Admin Dose Admin Acetaminophen (Tylenol) 650 mg Q4H PRN ORAL fever ALFARO Pain 11/25/17 05:00 12/25/17 04:59 Albuterol/ Ipratropium (Albuterol/ Ipratropium) 3 ml Q4HRT HHN 11/25/17 07:00 11/26/17 02:59 11/25/17 08:30 Aspirin (Ecotrin) 81 mg DAILY ORAL 11/25/17 09:00 12/21/17 08:59 11/25/17 09:04 Azithromycin (Zithromax) 250 mg DAILY ORAL 11/25/17 09:00 11/28/17 08:59 11/25/17 09:04 Carvedilol (Coreg) 6.25 mg EVERY 12 HOURS ORAL 11/25/17 09:00 12/25/17 08:59 Cyanocobalamin (Vitamin B12) 1,000 mcg DAILY IM 11/25/17 09:00 11/27/17 07:00 Doxycycline Hyclate 100 mg/ Dextrose 110 ml @ 110 mls/hr Q12HR@0000,1200 IV 11/25/17 12:00 11/28/17 11:59 Famotidine (Pepcid) 20 mg DAILY ORAL 11/25/17 09:00 12/21/17 08:59 Heparin Sodium (Porcine) (Heparin 5000 units/ml) 5,000 units EVERY 12 HOURS SUBQ 11/25/17 09:00 12/21/17 20:59 Lisinopril (Zestril) 5 mg DAILY ORAL 11/25/17 09:00 12/23/17 15:59 Zolpidem Tartrate (Ambien) 5 mg BEDTIME ORAL 11/25/17 21:00 11/28/17 20:59 Apolinar Singer MD Nov 25, 2017 09:48
[2017-11-25 10:43] LABS: BASOPHILS % (AUTO) 1.3 % (0.0-2.0); EOSINOPHILS % (AUTO) 3.2 % (0.0-3.0); HEMATOCRIT 36.7 % (42.0-52.0); HEMOGLOBIN 12.5 G/DL (14.2-18.0); MEAN CORPUSCULAR VOLUME 99 FL (80-99); NEUTROPHILS % (AUTO) 60.6 % (45.0-75.0); PLATELET COUNT 167 K/UL (150-450); WHITE BLOOD COUNT 4.1 K/UL (4.8-10.8)
[2017-11-25] MEDS: Vitamin B12 1000mcg/ml Inj IM SCH (11:23)
[2017-11-25 12:00] VITALS: BP 115/89
[2017-11-25] MEDS ORDERED: Doxycycline Hyclate 100 MG in D5W 110 ML IV SCH (12:00)
[2017-11-25 13:11] LABS: ANION GAP 9 mmol/L (5-15); BLOOD UREA NITROGEN 12 mg/dL (7-18); CALCIUM 9.5 MG/DL (8.5-10.1); CARBON DIOXIDE 28 MMOL/L (21-32); CHLORIDE 109 MMOL/L (98-107); CREATININE 1.1 MG/DL (0.55-1.30); POTASSIUM 4.4 MMOL/L (3.5-5.1); SODIUM 146 MMOL/L (136-145)
[2017-11-25 16:01] VITALS: BP 129/78
[2017-11-25 20:00] VITALS: BP 105/64
[2017-11-25] MEDS ORDERED: Zolpidem 5mg tab ORAL SCH (21:00)
[2017-11-26] VITALS: BP 129/79
[2017-11-26 04:00] VITALS: BP 114/81
[2017-11-26 08:00] VITALS: BP 123/87
[2017-11-26] MEDS: Azithromycin 250mg tab ORAL SCH (09:10)
[2017-11-26] MEDS: Aspirin EC 81mg tab ORAL SCH (09:10)
[2017-11-26] MEDS: Lisinopril 2.5mg tab ORAL SCH (09:10)
[2017-11-26] MEDS: Carvedilol 6.25mg Tab ORAL SCH (09:10)
[2017-11-26] MEDS: Vitamin B12 1000mcg/ml Inj IM SCH (09:11)
[2017-11-26] MEDS: Heparin 5000 units/ml inj SUBQ SCH (09:12)
--- NOTE | 2017-11-26 11:14 | Cardiology Report ---
APPROVED REPORT EXAM: Two-dimensional and M-mode echocardiogram with Doppler and color Doppler. INDICATION Acute FL M-mode measurements of left ventricle not obtainable due to cardiac position (angle) Left ventricular enlargement. Left ventricular ejection fraction estimated to be 10-15 %. No evidence of left ventricular hypertrophy. Anterior Echo-free space, may be due to pericardial fat or effusion. Moderate bi-atrial enlargement. Mild right ventricular enlargement. Focal aortic valve sclerosis with adequate cusp excursion. Thickened mitral valve leaflets with normal excursion. Mitral annulus and aortic root calcification. Pulmonic valve not well visualized. Normal tricuspid valve structure. IVC dilated at 2.1 cm with slight physiologic collapse suggestive of mildly increased RA pressure. A color flow and spectral Doppler study was performed and revealed: Mild aortic regurgitation. Moderate to severe mitral regurgitation. Mitral inflow indicates restrictive pattern, implying severely elevated left atrial pressure (Grade III). Moderate tricuspid regurgitation. Tricuspid systolic velocities suggests peak right ventricular systolic pressure of 40 mmHg, consistent with mild pulmonary hypertension. Pulmonic regurgitation present.
[2017-11-26 12:00] VITALS: BP 116/93
--- NOTE | 2017-11-26 12:23 | Pulmonology Progress Note ---
Assessment/Plan Assessment/Plan 1. Acute myocardial infarction. 2. Chronic obstructive pulmonary disease exacerbation. 3. history of asthma 4. Cardiomyopathy with depressed EF PLAN: The predominant issue is cardiac; low EF noted on echocardiogram. Continue antibiotics.Will dc Doxycycline; continue Azithromycin Continue respiratory treatments Subjective Interval Events: no changes reported. Constitutional: Reports: no symptoms HEENT: Repors: no symptoms Respiratory: Reports: no symptoms Cardiovascular: Reports: no symptoms Allergies: Coded Allergies: PENICILLINS (Verified Allergy, Unknown, 11/20/17) Objective Last 24 Hour Vital Signs Date Time Temp Pulse Resp B/P (MAP) Pulse Ox O2 Delivery O2 Flow Rate FiO2 11/26/17 09:10 123/87 11/26/17 09:10 100 123/87 11/26/17 08:00 98.1 100 18 123/87 97 Room Air 11/26/17 04:00 97.1 114 20 114/81 96 Room Air 11/26/17 00:00 97.0 101 20 129/79 98 Room Air 11/25/17 23:41 21 11/25/17 23:40 87 18 93 Room Air 21 11/25/17 23:39 Room Air 11/25/17 20:24 101 129/79 11/25/17 20:05 95 18 99 Room Air 11/25/17 20:05 97 18 99 Room Air 11/25/17 20:00 98.1 83 18 105/64 97 Room Air 11/25/17 19:56 21 11/25/17 19:56 94 18 93 Room Air 21 11/25/17 16:01 98.2 106 20 129/78 97 Room Air 11/25/17 15:38 86 18 99 Room Air 11/25/17 15:31 90 18 99 Room Air 21 11/25/17 15:31 21 Intake and Output 11/25/17 11/26/17 19:00 07:00 Intake Total 700 ml Balance 700 ml Intake Oral 700 ml # Voids 4 2 General Appearance: no acute distress HEENT: normocephalic Respiratory/Chest: chest wall non-tender, lungs clear Cardiovascular: normal peripheral pulses, normal rate Current Medications Medications (Trade) Dose Ordered Sig/Elmer Route PRN Reason Start Time Stop Time Status Last Admin Dose Admin Acetaminophen (Tylenol) 650 mg Q4H PRN ORAL fever ALFARO Pain 11/25/17 05:00 12/25/17 04:59 Aspirin (Ecotrin) 81 mg DAILY ORAL 11/25/17 09:00 12/21/17 08:59 11/26/17 09:10 Azithromycin (Zithromax) 250 mg DAILY ORAL 11/25/17 09:00 11/28/17 08:59 11/26/17 09:10 Carvedilol (Coreg) 6.25 mg EVERY 12 HOURS ORAL 11/25/17 09:00 12/25/17 08:59 11/26/17 09:10 Cyanocobalamin (Vitamin B12) 1,000 mcg DAILY IM 11/25/17 09:00 11/27/17 07:00 11/26/17 09:11 Famotidine (Pepcid) 20 mg DAILY ORAL 11/25/17 09:00 12/21/17 08:59 11/26/17 09:11 Heparin Sodium (Porcine) (Heparin 5000 units/ml) 5,000 units EVERY 12 HOURS SUBQ 11/25/17 09:00 12/21/17 20:59 11/26/17 09:12 Lisinopril (Zestril) 5 mg DAILY ORAL 11/25/17 09:00 12/23/17 15:59 11/26/17 09:10 Zolpidem Tartrate (Ambien) 5 mg BEDTIME ORAL 11/25/17 21:00 11/28/17 20:59 11/25/17 20:23 Apolinar Singer MD Nov 26, 2017 12:23
--- NOTE | 2017-11-26 13:15 | Progress Note ---
DATE: 11/25/2017 CARDIOLOGY PROGRESS NOTE SUBJECTIVE: The patient continues to feel better with less shortness of breath and better exercise capacity. Antibiotics were discontinued today. OBJECTIVE: VITAL SIGNS: Blood pressure 129/79, pulse 101, respiratory rate 18, and afebrile. LUNGS: With coarse breath sounds. CARDIAC: Regular rhythm and rate. Normal S1 and S2 with a 1/6 systolic apical murmur. ABDOMEN: Soft. EXTREMITIES: Trace edema. LABORATORY DATA: White count 4.1, hemoglobin 12.5. Magnesium 1.7. Pronatriuretic peptide 4100. Troponin 1.1. Sodium 146, potassium 4.4, BUN 12, and creatinine 1.1. IMPRESSION: 1. Hypomagnesemia. 2. Dehydration. 3. Hyponatremia. 4. Acute myocardial infarction. 5. Dilated cardiomyopathy. 6. Acute on chronic systolic congestive heart failure. 7. Moderate protein-calorie malnutrition. 8. Chronic obstructive pulmonary disease. 9. Acute bronchitis. PLAN: 1. Free water replacement. 2. IV magnesium. 3. Maximize anti-failure regimen. 4. Outpatient cardiac catheterization to be considered followed by cardiac defibrillator for primary prevention of sudden cardiac . Aurelio Mcgraw M.D. DR: LORETTA JOB#: [id number] CC:
[2017-11-26] MEDS ORDERED: LISINOPRIL5 MG ORAL (14:10)
[2017-11-26] MEDS ORDERED: COREG6.25 MG ORAL (14:11)
[2017-11-26] MEDS ORDERED: PEPCID20 MG ORAL (14:13)
[2017-11-26] MEDS ORDERED: PROAIR HFA8.5 GM INH (14:15)
[2017-11-26 16:00] VITALS: BP 127/91
[2017-11-27] MEDS ORDERED: Lisinopril 10mg tab ORAL SCH (09:00)
--- NOTE | 2017-11-27 17:45 | Discharge Summary ---
DATE OF ADMISSION: 11/20/2017 DATE OF DISCHARGE: 11/26/2017 DISPOSITION: Home. CONDITION: Stable. FOLLOWUP: With Dr. Mcgraw. ACTIVITY: Ad-dejon. DIET: No added salt. MEDICATIONS: Listed on discharge medication list. PHYSICAL EXAMINATION: VITAL SIGNS: Afebrile, blood pressure 116/93, pulse 100, respirations 18. NECK: Supple. LUNGS: With no wheezing or rales. CARDIAC: Regular rhythm and rate. Normal S1, S2 with a 1/6 systolic apical murmur. ABDOMEN: Soft. EXTREMITIES: No edema. HOSPITAL COURSE: This 67-year-old male, presented to the hospital with shortness of breath and chest discomfort. He was noted to have an elevated troponin level, signs of acute bronchospasm, and congestive heart failure. He was admitted to the cardiac observation unit. His treatment included bronchodilators, empiric antibiotics, and diuretics followed by titration of angiotensin-converting enzyme inhibitor and carvedilol. The patient had an echocardiogram that was grossly abnormal with an ejection fraction of only 10% to 15%. He clinically improved with the therapy initiated. He also was noted to have borderline low B12 levels and was supplemented and low magnesium level repleted as well. He was advised as to his long-term management. An outpatient assessment for reversible ischemia, followed by consideration for a defibrillator will follow as an outpatient, Advised to follow up with me within 1 week's time. FINAL DIAGNOSES: 1. Chronic obstructive pulmonary disease exacerbation. 2. Acute bronchitis. 3. Acute bronchospasm. 4. Lactic acidosis. 5. Acute myocardial infarction. 6. Mild protein-calorie malnutrition. 7. Acute on chronic systolic congestive heart failure. 8. Hypomagnesemia. 9. B12 deficiency, likely due to pernicious anemia. Aurelio Mcgraw M.D. DR: WILFREDO JOB#: [id number] CC: PALLAVI
--- NOTE | 2017-12-09 20:37 | Diagnostic Imaging Report ---
APPROVED REPORT CPT Code: 60385 Present Symptoms Lower Extremity Pain: BILATERAL LOWER EXTREMITY VENOUS DUPLEX: Imaging reveals a patent deep venous system bilaterally. There is no evidence of thrombus within the femoral, popliteal or tibial segments. The greater saphenous veins are also within normal limits. Doppler indicates normal spontaneous flow within these segments.
== END 2017-11-26 18:00 | disposition home or self-care (01) | DRG 190 ==
LOC: EDBD 13:25 → EDBEDREQ 14:03 → EMR 14:25 → 2E 14:50 → EDBEDREQ 15:32 → SDSOVERFLO 11-23 15:03 → 2E 11-23 15:06 → 4W 11-25 03:57
DX: I21.9 Acute myocardial infarction, unspecified (principal); I50.23 Acute on chronic systolic (congestive) heart failure; I42.0 Dilated cardiomyopathy; I42.9 Cardiomyopathy, unspecified; J44.0 Chronic obstructive pulmonary disease with (acute) lower respiratory infection; E44.1 Mild protein-calorie malnutrition; E86.0 Dehydration; E83.42 Hypomagnesemia; J44.1 Chronic obstructive pulmonary disease with (acute) exacerbation; Z88.0 Allergy status to penicillin; R74.8 Abnormal levels of other serum enzymes; Z87.891 Personal history of nicotine dependence; J20.9 Acute bronchitis, unspecified; E86.1 Hypovolemia
CPT/HCPCS: 36415; 36600; 70450; 71045; 80048; 80053; 80061; 80307; 81003; 82248; 82550; 82553; 82607; 82746; 82803; 83605; 83735; 83880; 84443; 84484; 85025; 86710; 87040; 87070; 87205; 93005; 93306; 93970; 94640; 94664; 94760; 99285; J3490; J7620

== ENCOUNTER 2017-12-09 17:30 | Inpatient (IN) | payer OTHER, MEDICARE ==
[~2017-12-09] VITALS: Ht 188 cm; Wt 72.1 kg
[~2017-12-09 17:30] MED LIST: COREG6.25 MG ORAL; LISINOPRIL5 MG ORAL; PEPCID20 MG ORAL; PROAIR HFA8.5 GM INH
--- NOTE | 2017-12-09 17:42 | Emergency Room Report ---
History of Present Illness General Chief Complaint: General Complaint Source: Medical Record (Joanna Vickers) Present Illness HPI 67 YO Male presents to the ED c/o shortness of breath, generalized weakness and muscle aches to the ribs, chest and bilateral UE x 2 hours, exacerbated when he has physical exertion. Pt. reports feeling fine at the moment, however symptoms were concerning enough to come to the ED. current meds consist of Carvedilol, lisinopril, and inhaler. Denies fevers, chills, nausea, vomiting. Denies Palpitations, LOC, AMS, dizziness, Changes in Vision, Sensation, paresthesias, or a sudden severe headache. 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 Hx Asthma: Yes Hx COPD: Yes Hx Cancer: No Hx Gastrointestinal Problems: No Hx Neurological Problems: No (Joanna Vickers) Review of Systems All Other Systems: negative except mentioned in HPI (Joanna Vickers) Physical Exam Vital Signs Date Time Temp Pulse Resp B/P (MAP) Pulse Ox O2 Delivery O2 Flow Rate FiO2 12/09/17 17:20 97.5 94 16 107/71 100 Room Air Sp02 EP Interpretation: reviewed, normal General Appearance: no apparent distress, alert, GCS 15, non-toxic, thin, Chronically Ill Head: normocephalic, atraumatic ENT: hearing grossly normal, normal pharynx, no angioedema, normal voice Neck: full range of motion, no bony tend Respiratory: chest non-tender, lungs clear, no respiratory distress, no accessory muscle use, speaking full sentences, wheezing - mild/scant expiratory wheezes, no ronchi or rales. Cardiovascular #1: regular rate, rhythm, normal capillary refill, edema - 1+ edema bilaterally Cardiovascular #2: 2+ radial (R), 2+ radial (L) Gastrointestinal: non tender, soft Musculoskeletal: back normal, gait/station normal, normal range of motion, non- tender Neurologic: alert, oriented x3, responsive, motor strength/tone normal, sensory intact, normal gait, speech normal, grossly normal Psychiatric: judgement/insight normal Skin: normal color, no rash, warm/dry, well hydrated (Joanna Vickers) Medical Decision Making PA Attestation Dr. Galicia is my supervising physician whom pt. management has been discussed with. (Joanna Vickers) Diagnostic Impression: Primary Impression: Shortness of breath Additional Impressions: Cardiac enzymes elevated Dehydration, mild ER Course 67 YO Male presents to the ED c/o shortness of breath, generalized weakness and muscle aches to the ribs, chest and bilateral UE x 2 hours, exacerbated when he has physical exertion. Pt. reports feeling fine at the moment, however symptoms were concerning enough to come to the ED. current meds consist of Carvedilol, lisinopril, and inhaler. Denies fevers, chills, nausea, vomiting. Denies Palpitations, LOC, AMS, dizziness, Changes in Vision, Sensation, paresthesias, or a sudden severe headache. Ddx considered but are not limited to DE, PE, atelectasis, CHF, asthma, COPD just to name a few. Vital signs: are WNL, pt. is afebrile H&PE are most consistent with possible CHF -- patient is in no acute distress his oxygen saturation is within normal limits, patient is not in any respiratory distress at this time ORDERS: LABS: pt. had elevated Troponin of 11.2 , BNP 6556, normal CK and CK-MB --- Per Dr. Mcgraw repeat Troponin: Pending. -EKG: NSR 98 beats per minute NSR with right sided strain, no T-wave elevation or acute ST changes- reviewed and interpreted by Dr. Galicia -CXR: unremarkable other than cardiomegaly. ED INTERVENTIONS: None required at this time. DISPOSITION: at this time pt. will be admitted to Dr. Mcgraw for SOB, elevated Troponin and dehydration. Dr. Mcgraw agreed to admit the pt. and to continue pt. care management. Labs Test 12/09/17 18:50 12/09/17 21:26 White Blood Count 7.0 K/UL (4.8-10.8) Red Blood Count 4.20 M/UL (4.70-6.10) Hemoglobin 13.4 G/DL (14.2-18.0) Hematocrit 42.4 % (42.0-52.0) Mean Corpuscular Volume 101 FL (80-99) Mean Corpuscular Hemoglobin 31.9 PG (27.0-31.0) Mean Corpuscular Hemoglobin Concent 31.5 G/DL (32.0-36.0) Red Cell Distribution Width 13.3 % (11.6-14.8) Platelet Count 198 K/UL (150-450) Mean Platelet Volume 7.6 FL (6.5-10.1) Neutrophils (%) (Auto) 70.7 % (45.0-75.0) Lymphocytes (%) (Auto) 17.6 % (20.0-45.0) Monocytes (%) (Auto) 5.5 % (1.0-10.0) Eosinophils (%) (Auto) 5.0 % (0.0-3.0) Basophils (%) (Auto) 1.1 % (0.0-2.0) Sodium Level 144 MMOL/L (136-145) Potassium Level 4.4 MMOL/L (3.5-5.1) Chloride Level 107 MMOL/L (98-107) Carbon Dioxide Level 27 MMOL/L (21-32) Anion Gap 10 mmol/L (5-15) Blood Urea Nitrogen 11 mg/dL (7-18) Creatinine 1.2 MG/DL (0.55-1.30) Estimat Glomerular Filtration Rate > 60 mL/min (>60) Glucose Level 130 MG/DL (74-106) Calcium Level 9.0 MG/DL (8.5-10.1) Total Bilirubin 1.4 MG/DL (0.2-1.0) Direct Bilirubin 0.5 MG/DL (0.0-0.3) Aspartate Amino Transf (AST/SGOT) 25 U/L (15-37) Alanine Aminotransferase (ALT/SGPT) 19 U/L (12-78) Alkaline Phosphatase 98 U/L (46-116) Total Creatine Kinase 142 U/L (26-308) Creatine Kinase MB 3.2 NG/ML (0.0-3.6) Creatine Kinase MB Relative Index 2.2 Troponin I 11.222 ng/mL (0.000-0.056) Pro-B-Type Natriuretic Peptide 6565 pg/mL (0-125) Total Protein 7.0 G/DL (6.4-8.2) Albumin 3.6 G/DL (3.4-5.0) Globulin 3.4 g/dL Albumin/Globulin Ratio 1.1 (1.0-2.7) (Joanna Vickers P.A.) ER Course I had a [id number] encounter with this patient, and I agree with the Joanna HOLDEN assessment and plan. Patient will have a VQ scan done as an inpatient as her unable to obtain adequate IV access for chest ct scan. He is not having chest pain, and he is not hypoxic or tachycardic. He has very poor ejection fraction of 10%, and his mash grinder believes that the troponin elevation is likely chronic. Patient remained stable and will be admitted to his mash grinder Dr. Rodríguez. (ELLIOT GALICIA M.D) EKG Diagnostic Results Rate: normal - 98 BPM Rhythm: NSR ST Segments: no acute changes Other Impression Right strain noted. ASA given to the pt in ED: Yes NAVIN Scribe Text This interpretation was scribed by NAVIN Vickers (Joanna Vickers) Chest X-Ray Diagnostic Results Chest X-Ray Diagnostic Results : Chest X-Ray Ordered: Yes # of Views/Limited/Complete: 1 View Indication: Shortness of Breath EP Interpretation: Yes NAVIN Xray: Interpretation reviewed, by supervising MD, and agrees with findings. Interpretation: no consolidation, no effusion, no pneumothorax, other - Cardiomegaly Impression: No acute disease Electronically Signed by: Joanna Vickers PA-C (Joanna Vickers) Last Vital Signs Date Time Temp Pulse Resp B/P (MAP) Pulse Ox O2 Delivery O2 Flow Rate FiO2 12/09/17 17:20 97.5 94 16 107/71 100 Room Air (Joanna Vickers) Status: unchanged (ELLIOT GALICIA M.D) Disposition: ADMITTED INPATIENT Condition: Serious Joanna Vickers Dec 09, 2017 17:42 ELLIOT GALICIA M.D Dec 09, 2017 22:12
[2017-12-09 17:50] VITALS: BP 107/71
[2017-12-09 19:05] LABS: BASOPHILS % (AUTO) 1.1 % (0.0-2.0); HEMATOCRIT 42.4 % (42.0-52.0); HEMOGLOBIN 13.4 G/DL (14.2-18.0); LYMPHOCYTES % (AUTO) 17.6 % (20.0-45.0); MEAN CORPUSCULAR VOLUME 101 FL (80-99); MONOCYTES % (AUTO) 5.5 % (1.0-10.0); NEUTROPHILS % (AUTO) 70.7 % (45.0-75.0); PLATELET COUNT 198 K/UL (150-450); RED CELL DISTRIBUTION WIDTH 13.3 % (11.6-14.8)
[2017-12-09 19:11] LABS: ANION GAP 10 mmol/L (5-15); BLOOD UREA NITROGEN 11 mg/dL (7-18); CARBON DIOXIDE 27 MMOL/L (21-32); CHLORIDE 107 MMOL/L (98-107); CREATININE 1.2 MG/DL (0.55-1.30); POTASSIUM 4.4 MMOL/L (3.5-5.1); SODIUM 144 MMOL/L (136-145)
[2017-12-09 19:20] VITALS: BP 114/85
[2017-12-09 19:22] LABS: ALANINE AMINOTRANSFERASE 19 U/L (12-78); ALBUMIN 3.6 G/DL (3.4-5.0); ALBUMIN/GLOBULIN RATIO 1.1 (1.0-2.7); ALKALINE PHOSPHATASE 98 U/L (46-116); ASPARTATE AMINO TRANSFERASE 25 U/L (15-37); BILIRUBIN,TOTAL 1.4 MG/DL (0.2-1.0); CKMB 3.2 NG/ML (0.0-3.6); CREATINE KINASE 142 U/L (26-308)
[2017-12-09 19:24] LABS: BILIRUBIN,DIRECT 0.5 MG/DL (0.0-0.3)
[2017-12-09] MEDS ORDERED: Albuterol ud Inhalation HHN ONE (19:45)
[2017-12-09 21:30] VITALS: BP 107/85
[2017-12-09] MEDS ORDERED: Heparin 5000 units/ml inj IV ONE (22:45)
[2017-12-09 23:05] LABS: APPEARANCE,URINE SLIGHTLY CLOUDY; BILIRUBIN, URINE NEGATIVE (NEGATIVE); GLUCOSE, URINE (UA) NEGATIVE (NEGATIVE); KETONES,URINE 1+ (NEGATIVE); LEUKOCYTE ESTERASE ,URINE 3+ (NEGATIVE); NITRITE,URINE NEGATIVE (NEGATIVE); PH,URINE 5 (4.5-8.0); PROTEIN,URINE 3+ (NEGATIVE); UROBILINOGEN,URINE 8 MG/DL (0.0-1.0)
[2017-12-09 23:06] LABS: COLOR,URINE YELLOW
[2017-12-09 23:30] VITALS: BP 114/87
[2017-12-10] VITALS (8 sets, daily range): BP systolic 97–117; BP diastolic 54–88
[2017-12-10] MEDS ORDERED: Enoxaparin 80mg Inj SUBQ SCH ×2 (02:30→09:00)
[2017-12-10] MEDS ORDERED: Milk of Magnesia 30ml Ud ORAL PRN (02:45)
[2017-12-10] MEDS: Carvedilol 6.25mg Tab ORAL SCH ×3 (03:11→21:00)
[2017-12-10] MEDS: Nitroglycerin 2% oint pkt TOPIC SCH ×5 (03:12→23:42)
[2017-12-10 06:33] LABS: BASOPHILS % (AUTO) 0.8 % (0.0-2.0); EOSINOPHILS % (AUTO) 0.7 % (0.0-3.0); HEMATOCRIT 39.5 % (42.0-52.0); HEMOGLOBIN 12.5 G/DL (14.2-18.0); LYMPHOCYTES % (AUTO) 14.8 % (20.0-45.0); MEAN CORPUSCULAR VOLUME 100 FL (80-99); MONOCYTES % (AUTO) 7.3 % (1.0-10.0); NEUTROPHILS % (AUTO) 76.4 % (45.0-75.0); PLATELET COUNT 159 K/UL (150-450); RED BLOOD COUNT 3.93 M/UL (4.70-6.10); RED CELL DISTRIBUTION WIDTH 12.9 % (11.6-14.8); WHITE BLOOD COUNT 5.9 K/UL (4.8-10.8)
[2017-12-10 07:11] LABS: ALANINE AMINOTRANSFERASE 25 U/L (12-78); ALBUMIN 3.5 G/DL (3.4-5.0); ALBUMIN/GLOBULIN RATIO 1.3 (1.0-2.7); ALKALINE PHOSPHATASE 87 U/L (46-116); ANION GAP 9 mmol/L (5-15); ASPARTATE AMINO TRANSFERASE 72 U/L (15-37); BILIRUBIN,TOTAL 1.8 MG/DL (0.2-1.0); BLOOD UREA NITROGEN 13 mg/dL (7-18); CALCIUM 8.7 MG/DL (8.5-10.1); CARBON DIOXIDE 27 MMOL/L (21-32); CHLORIDE 107 MMOL/L (98-107); CHOLESTEROL 139 MG/DL (< 200); CREATININE 1.2 MG/DL (0.55-1.30); HDL CHOLESTEROL 49 MG/DL (40-60); POTASSIUM 4.9 MMOL/L (3.5-5.1); SODIUM 143 MMOL/L (136-145); TRIGLYCERIDES 64 MG/DL (30-150)
[2017-12-10 07:12] LABS: BILIRUBIN,DIRECT 0.7 MG/DL (0.0-0.3)
[2017-12-10] MEDS: Lisinopril 10mg tab ORAL SCH (09:29)
[2017-12-10] MEDS: Aspirin Baby 81mg ORAL SCH (09:29)
[2017-12-10] MEDS: Enoxaparin Sodium 300mg/3ml vial SUBQ SCH ×2 (11:02→21:14)
[2017-12-10 11:13] LABS: CKMB 35.1 NG/ML (0.0-3.6)
--- NOTE | 2017-12-10 12:11 | Diagnostic Imaging Report ---
Indication: Chest pain Technique: One view of the chest Comparison: 11/20/2017 Findings: Right costophrenic angle blunting is unchanged. The lungs pulsations are otherwise clear. The heart is enlarged. Impression: Right costophrenic angle blunting-pleural fluid versus scarring Cardiomegaly No significant change since 11/20/2017
--- NOTE | 2017-12-10 18:04 | Cardiology Report ---
APPROVED REPORT EXAM: Two-dimensional and M-mode echocardiogram with Doppler and color Doppler. INDICATION Acute NH M-Mode DIMENSIONS IVSd1.0 (0.7-1.1cm)Left Atrium (MM)4.0 (1.6-4.0cm) LVDd6.4 (3.5-5.6cm)Aortic Root3.3 (2.0-3.7cm) PWd1.1 (0.7-1.1cm)Aortic Cusp Exc.2.0 (1.5-2.0cm) LVDs5.6 (2.5-4.0cm) PWs1.3 cm Severe left ventricular enlargement. Global left ventricular akinesia, left ventricular ejection fraction estimated to be less than 10%. Ischemic cardiomyopathy can not be excluded. Increased E point-interventricular septal separation c/w left ventricular dysfunction. No evidence of left ventricular hypertrophy. Anterior Echo-free space, may be due to pericardial fat or effusion. Moderate left atrial enlargement. Right atrial size at upper limits of normal. Mild right ventricular enlargement. Mild focal aortic valve sclerosis with adequate cusp excursion. Thickened mitral valve leaflets with normal excursion. Mitral annulus and aortic root calcification. Pulmonic valve not well visualized. Normal tricuspid valve structure. IVC dilated at 2.1 cm with slight physiologic collapse suggestive of mildly increased RA pressure. A color flow and spectral Doppler study was performed and revealed: Trace aortic regurgitation. Moderate to severe mitral regurgitation. Mitral inflow velocities indicates possible pseudo normalization pattern implying moderately elevated left atrial pressure (Grade II ). Moderate to severe tricuspid regurgitation. Tricuspid systolic velocities suggests peak right ventricular systolic pressure of 58 mmHg, consistent with moderate to severe pulmonary hypertension. Trace pulmonic regurgitation present.
[2017-12-10] MEDS ORDERED: Zolpidem 5mg tab ORAL PRN (22:00)
[2017-12-11] VITALS: BP 103/64
--- NOTE | 2017-12-11 00:45 | Progress Note ---
DATE: 12/10/2017 CARDIOLOGY PROGRESS NOTE SUBJECTIVE: The patient is without any more muscle aches or discomfort in his extremities. He notes that the sensation resolved when he got to the emergency room and was treated last night. The patient's monitored rhythm is sinus with rare atrial ectopics. Electrocardiogram today revealed sinus rhythm with no acute ST-T wave changes. Repeat echocardiogram revealed persistent severe global hypokinesis with ejection fraction of 15%. Troponin level has increased to 24. PHYSICAL EXAMINATION: VITAL SIGNS: Blood pressure of 107/69, pulse 94, respirations 20, afebrile, and oxygen saturation on room air 98%. NECK: Jugular venous pressure is slightly elevated. LUNGS: With diminished breath sounds. No wheezing. CARDIAC: Regular rhythm and rate. Normal S1, S2. A 1/6 systolic murmur at apex with a third heart sound. ABDOMEN: Soft. EXTREMITIES: No edema. LABORATORY DATA: White count 5.9, hemoglobin 12.5. Potassium 4.9, magnesium 1.7. IMPRESSION: 1. Acute myocardial infarction. 2. Severe dilated cardiomyopathy. 3. Acute on chronic systolic congestive heart failure. 4. Cardiogenic insufficiency and shock. 5. Moderate protein-calorie malnutrition. 6. Hypomagnesemia. PLAN: 1. Continue full anticoagulation and anti-platelet therapy. 2. Maximize antianginal and anti-failure regimen. 3. Diuresis. 4. Transferred to a tertiary care facility for coronary angiography and possibly initiation of transplant evaluation. Aurelio Mcgraw M.D. DR: DANISH JOB#: [id number] CC:
--- NOTE | 2017-12-11 01:00 | History and Physical Report ---
DATE OF ADMISSION: 12/09/2017 CARDIOLOGY EVALUATION CONSULTING PHYSICIAN: Aurelio Mcgraw M.D. REQUESTING PHYSICIAN: Josiah Damon M.D. The patient is seen in the emergency room. REASON FOR CONSULTATION: Acute myocardial infarction. HISTORY OF PRESENT ILLNESS: This is a 67-year-old male with dilated cardiomyopathy, who was hospitalized here about two weeks ago with congestive heart failure and chronic obstructive pulmonary exacerbation due to bronchitis. He had an echocardiogram that revealed an ejection fraction of about 15% with global hypokinesis. He was started on anti-failure therapy and discharged home. He was in fact seen in my office several days ago and doing quite well. Last evening, he felt that he could not get rest or sleep. He had some discomfort in his arms and neck that he describes as muscle aches. He noted worsening when he was active and came to the emergency room where an elevated troponin level of 11 was found. PAST MEDICAL HISTORY: Chronic obstructive pulmonary disease, congestive heart failure, ischemic and hypertensive cardiomyopathy, and systolic congestive heart failure. MEDICATIONS: Reviewed and reconciled. ALLERGIES: Penicillin. SOCIAL HISTORY: No current smoking, alcohol, or substance abuse. REVIEW OF SYSTEMS: As outlined above. PHYSICAL EXAMINATION: VITAL SIGNS: Afebrile, blood pressure 107/71, pulse 94, and respirations 16. NECK: Jugular venous pressure elevated. LUNGS: With few rales. CARDIAC: Regular rhythm and rate. Normal S1, S2. A 1/6 systolic apical murmur. There is a fourth heart sound. ABDOMEN: Soft and nontender. EXTREMITIES: Trace dependent edema. NEUROLOGIC: Nonfocal. DIAGNOSTIC DATA: EKG, sinus rhythm, poor R-wave progression, nonspecific ST-T changes. No acute ST elevation or depressions noted. Chest x-ray reveals cardiomegaly with no acute process. Pro-natriuretic peptide is 6500. IMPRESSION: 1. Acute myocardial infarction. 2. Ischemic and hypertensive cardiomyopathy. 3. Acute on chronic systolic congestive heart failure. 4. History of chronic obstructive pulmonary disease. PLAN: 1. Cardiac monitoring. 2. Full anticoagulation. 3. Titrate angiotensin-converting enzyme inhibitor and carvedilol dosing. 4. Topical nitrates. 5. Diuresis based on clinical parameters. 6. Continued anti-platelet therapy and statin drugs. Aurelio Mcgraw M.D. DR: KATHERINE JOB#: [id number] CC: PALLAVI
[2017-12-11 04:30] VITALS: BP 109/64
[2017-12-11] MEDS: Nitroglycerin 2% oint pkt TOPIC SCH ×3 (05:40→18:28)
[2017-12-11 05:51] LABS: BASOPHILS % (AUTO) 1.9 % (0.0-2.0); EOSINOPHILS % (AUTO) 3.6 % (0.0-3.0); HEMATOCRIT 36.4 % (42.0-52.0); HEMOGLOBIN 11.6 G/DL (14.2-18.0); LYMPHOCYTES % (AUTO) 33.5 % (20.0-45.0); MEAN CORPUSCULAR VOLUME 101 FL (80-99); MONOCYTES % (AUTO) 11.4 % (1.0-10.0); NEUTROPHILS % (AUTO) 49.6 % (45.0-75.0); PLATELET COUNT 148 K/UL (150-450); RED BLOOD COUNT 3.61 M/UL (4.70-6.10); WHITE BLOOD COUNT 4.4 K/UL (4.8-10.8)
[2017-12-11 06:25] LABS: ANION GAP 6 mmol/L (5-15); BLOOD UREA NITROGEN 14 mg/dL (7-18); CALCIUM 8.8 MG/DL (8.5-10.1); CARBON DIOXIDE 30 MMOL/L (21-32); CHLORIDE 109 MMOL/L (98-107); CREATININE 1.3 MG/DL (0.55-1.30); POTASSIUM 4.5 MMOL/L (3.5-5.1); SODIUM 145 MMOL/L (136-145)
[2017-12-11 08:00] VITALS: BP 112/69
[2017-12-11] MEDS: Lisinopril 10mg tab ORAL SCH (09:33)
[2017-12-11] MEDS: Carvedilol 6.25mg Tab ORAL SCH ×2 (09:33→20:30)
[2017-12-11] MEDS: Aspirin Baby 81mg ORAL SCH (09:34)
[2017-12-11] MEDS: Enoxaparin Sodium 300mg/3ml vial SUBQ SCH ×2 (09:34→20:31)
[2017-12-11 12:00] VITALS: BP 107/73
[2017-12-11] MEDS ORDERED: cefTRIAXone 1 GM in D5W 55 ML IVPB SCH (12:45)
[2017-12-11] MEDS ORDERED: Tubing IV Secondary IV ONE (14:50)
[2017-12-11] MEDS ORDERED: NS 500ML ONE (14:50)
[2017-12-11] MEDS: Aztreonam Inj 1 GM in NS 55 ML IVPB SCH ×2 (15:53→22:53)
[2017-12-11 16:00] VITALS: BP 108/78
[2017-12-11 20:00] VITALS: BP 110/77
[2017-12-12] VITALS: BP 109/72
[2017-12-12 00:10] VITALS: BP 128/64
[2017-12-12] MEDS: Nitroglycerin 2% oint pkt TOPIC SCH (00:10)
--- NOTE | 2017-12-12 19:18 | Cardiology Report ---
APPROVED REPORT EKG Measurement Heart [id number] Normal sinus rhythm Low voltage QRS T wave abnormality, consider lateral ischemia Prolonged QT Abnormal ECG
--- NOTE | 2017-12-13 00:15 | History and Physical Report ---
DATE OF ADMISSION: 12/09/2017 CHIEF COMPLAINT: Acute myocardial infarction. HISTORY OF PRESENT ILLNESS: The patient is a 67-year-old male. He has a history of dilated cardiomyopathy, chronic obstructive pulmonary disease, and hypertension, who presented from home with complaints of acute onset of sudden chest pain, neck pain, and shoulder pain. According to the patient, he was well when he developed sudden pain in the neck, arm, and back. He felt as if he had severe muscle aches. Apparently, squeaking because the pain was so unbearable. On evaluation in the emergency room, the patient's troponin was elevated at 11. He has been started on antiplatelet therapy, bus-mconhjbpx-tllzlc heparin, beta-blockade, and is now admitted for further evaluation and care. Currently, chest pain had resolved. PAST MEDICAL HISTORY: As above. PAST SURGICAL HISTORY: None. CURRENT MEDICATIONS: Reconciled and reviewed. ALLERGIES: Penicillin. FAMILY HISTORY: Noncontributory. SOCIAL HISTORY: Negative for tobacco, ethanol, or drugs. REVIEW OF SYSTEMS: GENERAL: No fever or chills. HEENT: No headaches or visual changes. CARDIOPULMONARY: Positive chest pain with no shortness of breath. GASTROINTESTINAL: No nausea or vomiting. GENITOURINARY: No urgency or frequency. MUSCULOSKELETAL: No joint pain or swelling. No evidence of seizures. PHYSICAL EXAMINATION: VITAL SIGNS: Temperature 98 degrees, blood pressure 100/73, pulse 80, and respirations 20. GENERAL: The patient is well-developed male, in no apparent distress. HEART: Regular rate and rhythm. LUNGS: Clear. ABDOMEN: Soft, nontender, and nondistended. EXTREMITIES: Without clubbing or cyanosis. There is 1+ to 2+ pitting edema. LABORATORY DATA: EKG showed sinus rhythm with poor R-wave progression and nonspecific ST-T wave changes. Chest x-ray showed cardiomegaly, but no infiltrate. Natriuretic peptide level was 6500. Troponin was 11. Creatinine was 1.2. White count was 7. UA showed too numerous to count WBCs. ASSESSMENT: This is a pleasant male, admitted with chest pain and acute myocardial infarction. 1. Chest pain. 2. Acute myocardial infarction. 3. Urinary tract infection. 4. History of hypertension. 5. Chronic obstructive pulmonary disease. PLAN: 1. Antiplatelet therapy. 2. Beta-blockade. 3. Opr-snhtkvzxt-swvacr heparin. 4. Antibiotics for urinary tract infection. 5. Possible transfer for cardiac catheterization. Josiah Damon M.D. DR: BRENNEN JOB#: [id number] CC:
--- NOTE | 2017-12-13 11:07 | Discharge Summary ---
Discharge Summary Hospital Course Date of Admission Dec 09, 2017 at 21:13 Date of Discharge Dec 12, 2017 at 00:45 Admitting Diagnosis NSTEMI-Troponin 11.222 HPI Darrell Angelo is a 67 year old male who was admitted on Dec 09, 2017 at 21:13 for Nstemi-Troponin 11.222 Hospital Course [id number] Discharge Discharge Disposition Patient was discharged to [facility] ' Discharge Diagnoses: Mary Little NP Dec 13, 2017 11:07
--- NOTE | 2017-12-13 18:00 | Progress Note ---
DATE: 12/11/2017 INTERNAL MEDICINE AND CARDIOLOGY PROGRESS NOTE SUBJECTIVE: The patient states he feels better, less shortness of breath. No chest pain, muscle aches, or arm numbness. The patient's troponin level continues to increase, now up to 51. EKG is reviewed and reveals no acute changes today. OBJECTIVE: VITAL SIGNS: Blood pressure 108/78, pulse 92, respirations 21, and afebrile. NECK: Supple. No jugular venous distention. LUNGS: With diminished breath sounds. CARDIAC: Regular rhythm and rate. Normal S1, S2 with a third heart sound and a 1/6 systolic apical murmur. ABDOMEN: Soft and nontender. EXTREMITIES: No edema. LABORATORY DATA: White count 4.4 and hemoglobin 11.6. Potassium 4.5. IMPRESSION: 1. Acute myocardial infarction. 2. Severe cardiomyopathy. 3. Acute on chronic systolic congestive heart failure. 4. Paroxysmal atrial ectopy. 5. Chronic obstructive pulmonary disease. 6. Hypomagnesemia, status post replacement therapy. 7. Possible myocarditis. PLAN: 1. Continue anticoagulation with high-dose Lovenox. 2. Cardiac monitoring, beta-blockade, and angiotensin receptor blockers with titration. 3. Anti-platelet and anti-lipid therapy. 4. Awaiting the transfer to higher level of care for cardiac catheterization. 5. Should coronary anatomy be normal, consideration for other reversible causes of cardiomyopathy will be discussed. Aurelio Mcgraw M.D. DR: LORETTA JOB#: [id number] CC:
--- NOTE | 2017-12-14 18:30 | Discharge Summary 2 SIG ---
DATE OF ADMISSION: 12/09/2017 DATE OF DISCHARGE: 12/12/2017 BRIEF HOSPITAL COURSE: The patient is a 67-year-old male with dilated cardiomyopathy, who was hospitalized two weeks prior to admission due to congestive heart failure and chronic obstructive pulmonary exacerbation due to bronchitis. He had an echocardiogram that revealed an ejection fraction of 15% with global hypokinesis. He was started on anti-failure therapy and was discharged home. On the night prior to admission, he could not get rest, though sleepy, had some discomfort in the arm and neck and had muscle aches. He presented to emergency room where on evaluation was noted to have elevated troponin of 11. EKG was in sinus rhythm with nonspecific ST to T-wave changes. No acute ST elevation or depression noted. Chest x-ray showed cardiomegaly with no acute process. Pro-natriuretic peptide was 6500. He was admitted to [facility] for non-ST elevated [place]. He was given low-molecular weight heparin and aspirin, and was continued on pravastatin. Urinalysis showed urine WBC too many to count with 2 to 4 RBC, 3+ leukocyte esterase. He was initially started on ceftriaxone. He had an echocardiogram done that showed global left ventricular akinesia with LVEF estimated to be less than 10%. Urine culture showed growth of Klebsiella. Antibiotic was switched to azithromycin. Troponin was up-trending. He was eventually transferred to [facility]. FINAL DIAGNOSES: 1. Acute non-ST elevated myocardial infarction. 2. Ischemic and hypertensive cardiomyopathy. 3. Acute on chronic systolic congestive heart failure. 4. Chronic obstructive pulmonary disease. 5. Urinary tract infection with Klebsiella pneumoniae. DISPOSITION: The patient was discharged to [facility]. Aurelio Mcgraw M.D. I have been assigned to dictate discharge summary on this account and I was not involved in the patient's management. Mary Little N.P. DR: QUINTON JOB#: [id number] CC:
--- NOTE | 2017-12-17 13:49 | Cardiology Report ---
APPROVED REPORT EKG Measurement Heart [id number] MT [id number] [id number] Normal sinus rhythm Possible Left atrial enlargement Rightward axis Nonspecific T wave abnormality Prolonged QT Abnormal ECG
== END 2017-12-12 00:45 | disposition short-term general hospital (02) | DRG 190 ==
LOC: EDBD 17:30 → EMR 17:40 → 2W 21:13 → EDBEDREQSVC 22:35 → EDBEDREQ 22:35 → 2W 12-10 20:10
DX: I21.4 Non-ST elevation (NSTEMI) myocardial infarction (principal); R57.0 Cardiogenic shock; I50.43 Acute on chronic combined systolic (congestive) and diastolic (congestive) heart failure; E44.0 Moderate protein-calorie malnutrition; E83.42 Hypomagnesemia; J44.9 Chronic obstructive pulmonary disease, unspecified; E86.0 Dehydration; I25.5 Ischemic cardiomyopathy; N39.0 Urinary tract infection, site not specified; I11.0 Hypertensive heart disease with heart failure; Z88.0 Allergy status to penicillin; Z68.20 Body mass index [BMI] 20.0-20.9, adult
CPT/HCPCS: 36415; 71045; 80048; 80053; 80061; 80307; 81003; 82248; 82550; 82553; 83735; 83880; 84484; 85025; 87081; 87086; 87181; 93005; 93306; 94664; 99285